=== PATIENT | female | born 1975 | race Caucasian/White ===

== ENCOUNTER 2017-02-09 11:48 | Inpatient (IN) | payer OTHER ==
--- NOTE | ~2017-02-09 | OR ---
Unit #: [id number] #: [id number] Patient: SHANNON SHAFFER [id number] [address] [place], [place] [address] [id number] MR#: [id number] NAME: SHANNON SHAFFER ROOM: 311 Date of Procedure: 02/10/2017 Admission Date: 02/09/2017 Surgeon: Jack Dalton III, M.D. : 1975 Attending Physician: Israel Quintanilla M.D. Primary Care Physician: Rush Martino M.D. OPERATIVE REPORT PREOPERATIVE DIAGNOSIS Left breast abscess. POSTOPERATIVE DIAGNOSIS Left breast abscess. PROCEDURE PERFORMED Excision of necrotic tissue including the abscess cavity of the left upper outer quadrant breast abscess. ANESTHESIA General. SPECIMEN Cultures and tissue sent to Pathology. COMPLICATIONS None apparent. ESTIMATED BLOOD LOSS 25 mL. INDICATIONS FOR PROCEDURE This is a 41-year-old lady, who has a history of IV drug use and hepatitis C, who developed an abscess on her left upper breast from IV injection. She is here today for excisional debridement and understands the need for postoperative dressing changes. DESCRIPTION OF PROCEDURE After consent was obtained, the patient was brought to the operating room and placed in the supine position. General anesthetic was administered and her left breast was prepped and draped in standard surgical fashion. She had a necrotic wound draining some purulent material. It had the appearance of MRSA type infection. I made an elliptical incision around the wound bed that was approximately 6 cm long and 2.5 cm wide. I sharply debrided this all the way down to normal breast tissue. I had some difficulty getting good hemostasis due to some diffuse bleeders. I did use cautery for hemostasis. I then irrigated the wound. I did send some of the murky drainage for cultures and the tissue was sent to Pathology. I then packed the wound with Betadine soaked Kerlix gauze. She tolerated the procedure without any problems and returned to the recovery room in stable condition. Unit #: [id number] #: [id number] Patient: SHANNON SHAFFER Dictated by... Jack Dalton III, M.D. VCL/juwan TD: 02/11/2017 12:56 JOB #: [id number] OPERATIVE REPORT Page 1 of 1 X Jack Dalton III, MD PROCEDURE OPERATIVE NOTE
--- NOTE | ~2017-02-09 | CO ---
Unit #: [id number] #: [id number] Patient: SHANNON SHAFFER [id number] [address] [place], [place] [address] [id number] I MR#: [id number] NAME: SHANNON SHAFFER ROOM: 311 Age: 41 Sex: F Admission Date: 02/09/2017 : 1975 Attending Physician: Israel Quintanilla M.D. Primary Care Physician: Rush Martino M.D. Consultation Date: 02/10/2017 CONSULTATION REPORT REASON FOR CONSULTATION Cellulitis and left breast abscess. HISTORY OF PRESENT ILLNESS This is a 41-year-old female with history of IV drug abuse who reports injecting IV heroin into her left breast. She was done approximately five or six days ago and then a few days later she began with swelling, painful breast with erythema and warmth. Patient came to the hospital. She denied any systolic fever, chest pain, shortness of breath, or any other abscesses anywhere else. The patient denies any nausea, vomiting, diarrhea. PAST MEDICAL HISTORY Essentially negative except for IV drug abuse. Questionable cervical cancer. PAST SURGICAL HISTORY Tubal ligation, left hand surgery, exploratory lap, D and C and partial hysterectomy. ALLERGIES No known allergies. MEDICATIONS Vancomycin and Zosyn. Further medications, please refer to patent's MAR. SOCIAL HISTORY The patient has positive tobacco abuse. Positive IV heroin use. No alcohol abuse. REVIEW OF SYSTEMS Negative except for as previously mentioned above. PHYSICAL EXAMINATION VITAL SIGNS: Temperature is 97.9, pulse 68, blood pressure 144/102 and respiratory rate 16. GENERAL: This is a no apparent distress female who just got back from surgery. Her pupils are sluggish. NECK: Supple. CARDIOVASCULAR: S1 and S2. Regular rate and rhythm. PULMONARY: Clear to auscultation bilaterally with no wheezes or rhonchi noted. ABDOMEN: Positive bowel sounds soft but nontender. EXTREMITIES: No clubbing, cyanosis, or edema. Her left breast is Unit #: [id number] #: [id number] Patient: SHANNON SHAFFER currently in a dressing and unable to be examined. DIAGNOSTIC STUDIES LABORATORY STUDIES: BUN 8, creatinine 0.5, sodium 139, potassium 4.9, chloride 103, CO2 28, bilirubin 0.6, AST 71, ALT 79, lactic acid 0.9. White blood cell count 6.5, hemoglobin 13.4, hematocrit 39.8. Blood cultures are currently pending. Breast cultures are currently pending. IMAGING STUDIES: No current medical imaging. IMPRESSION This is a 41-year-old female with history of IV drug abuse who injected into her left breast and developed abscess with associated cellulitis. Patient is status post incision and drainage. At this time will recommend a followup on blood cultures and wound culture results. Will continue vancomycin and Zosyn. Will ask the nursing staff to call with any positive blood cultures. Thank you for allowing us to participate in the care of this patient and further recommendations to follow pending patient's clinical course. Dictated by... Toño PavonPRylanRRylanNRylan for Adair Byrne/cruz TD: 02/10/2017 13:05 JOB #: [id number] CONSULTATION REPORT Page 1 of 1 X X CONSULTATION REPORT
--- NOTE | ~2017-02-09 | HP ---
Unit #: [id number] #: [id number] Patient: SHANNON SHAFFER [id number] [address] [place], [place] [address] [id number] I MR#: [id number] NAME: SHANNON SHAFFER ROOM: 311 Age: 41 Sex: F Admission Date: 02/09/2017 : 1975 Attending Physician: Israel Quintanilla M.D. Primary Care Physician: Rush Martino M.D. HISTORY AND PHYSICAL ADMISSION DIAGNOSES 1. Left breast abscess. 2. IV drug abuse. 3. History of hep. C. HISTORY OF PRESENT ILLNESS Ms. Shaffer is a 41-year-old, female patient of Dr. Martino with the history of IV drug abuse. She admits being addicted to IV heroin who apparently had been injecting into the vein on her left breast; which got infected, swollen, erythematous and she decided to come to the hospital once she started being febrile and more swollen. She complains of pain in the area. Otherwise, denies any substernal chest pain. Denies any headache, dizziness, shortness of air, or dyspnea. Denies any syncope, presyncope, nausea, vomiting, diarrhea, or abdominal pain. REVIEW OF SYSTEMS So, 12-point review of systems on this patient is basically negative, except as above. PAST MEDICAL HISTORY Significant for just gastritis. No other medical issues. PAST SURGICAL HISTORY Significant for tubal ligation, left hand surgery, exploratory laparotomy, [employer] surgery for cervical cancer, D and C, and partial hysterectomy. HOME MEDICATIONS None. ALLERGIES No known drug allergies. SOCIAL HISTORY She is an active smoker. Admits, again, IV heroin abuse. Denies any daily alcohol drinking. FAMILY HISTORY Unremarkable. PHYSICAL EXAM GENERAL APPEARANCE: Patient is a 41-year-old, female in no acute distress. VITAL SIGNS: BP 134/93, heart rate 73, respirations 16, and temperature 98. Unit #: [id number] #: [id number] Patient: SHANNON SHAFFER HEENT: Head is atraumatic. Pupils are equal, round, and reactive to light and accommodation. Extraocular muscles intact. Oropharynx with the missing tooth and multiple caries. NECK: Supple. No mass. No JVD. No bruits. CHEST: Diminished bilaterally. CARDIOVASCULAR: S1 and S2. No murmurs. ABDOMEN: Soft, nontender, and nondistended. LOWER EXTREMITIES: Without any cyanosis, clubbing, or edema. NEUROLOGIC: Patient grossly intact. No focal deficits. SKIN: Significant for erythema and serosanguinal drainage from the left lateral breast. Again, with increasing swelling, tenderness, and widespread erythema, around (1) 6 x 8 cm. DIAGNOSTIC STUDIES LABORATORY: Chemistry: Unremarkable, except potassium of 3.2, BUN and creatinine 7 and 0.5, chloride 98, and AST and ALT 71 and 79. Hematology unremarkable, white count 10.4. ASSESSMENT AND PLAN 1. Left breast abscess. Continue IV vanc. Consider ID evaluation. Status post evaluation per LSA. Scheduled for I and D in the morning. Continue supportive care and symptomatic management. 2. IV drug abuse. Counseled on the importance of quitting. Defers HIV testing. Acceptable to psychiatry evaluation. 3. History of hep. C. 4. Tobacco use. Counseled on importance of quitting. 5. GI and DVT prophylaxes. Put on SCDs. Started on Protonix. 6. Blood cultures pending, which will be followed up. Dictated by Adair Cifuentes/vani TD: 02/10/2017 05:57 JOB #: [id number] HISTORY AND PHYSICAL Page 1 of 1 X Israel Quintanilla MD X HISTORY AND PHYSICAL
--- NOTE | ~2017-02-09 | DS ---
Unit #: [id number] #: [id number] Patient: SHANNON SHAFFER [id number] [address] [address] [id number] I MR#: [id number] NAME: SHANNON SHAFFER ROOM: 311 Age: 41 Sex: F Admission Date: 02/09/2017 : 1975 Discharge Date: 02/12/2017 Attending Physician: Israel Quintanilla M.D. Primary Care Physician: Rush Martino M.D. DISCHARGE SUMMARY FINAL DIAGNOSES 1. Left breast abscess. 2. Status post incision and drainage. 3. Intravenous drug abuse. 4. History of hepatitis C. 5. Hypertension. DISCHARGE MEDICATIONS 1. [place] 7.5/325, one to two tablets q.6 p.r.n. Prescription has been written by Dr. Dalton. 2. Normal saline wet to dry dressing three times a day. 3. Norvasc 5 mg daily. 4. Zyvox 600 mg b.i.d. CONSULTATION DURING HOSPITALIZATION 1. Dr. Navarro - Infectious Disease. 2. Dr. Jack Dalton/Dr. Mesa - [facility]. 3. Dr. Salvatore Spann - Psychiatry Services. LAB WORKUP ON DISCHARGE Sodium 141, potassium 4.0, chloride 108, BUN 6, creatinine 0.6, calcium 8.5. CBC shows WBC 5.4, hemoglobin 12.4, hematocrit 37.3 and platelet count of 171. Blood culture - one growth is negative and one set shows diphtheroids, probable skin contaminant. Wound culture shows occasional Gram-positive cocci in pairs. Beta hCG was negative. Lactic acid 0.9 on admission. PROCEDURE PERFORMED DURING HOSPITALIZATION Excision of the necrotic tissue including the abscess cavity of the left upper outer quadrant breast abscess by Dr. Dalton on 02/11/2017. HOSPITAL COURSE Ms. Shaffer is a 41-year-old female who was admitted by my colleague, Dr. Israel Quintanilla, for left breast abscess. The patient has a history of IV drug abuse. Dr. Mesa was consulted. The patient had the left breast I and D done. Infectious disease was consulted. Patient received IV Zosyn and IV vancomycin during hospitalization. Final culture is still pending. Preliminary is Gram-positive in pair. The patient is being Unit #: [id number] #: [id number] Patient: SHANNON SHAFFER discharged on Zyvox as per ID recommendation. Patient is stable and would like to go home. EXAMINATION ON DISCHARGE VITAL SIGNS: Blood pressure is 150/100, respiratory rate 18, pulse is 85, temperature 97.7, oxygen saturation is 100%. HEENT: Head is normocephalic. CHEST: Fair air entry. CVS: Regular rhythm. BREAST: Left breast dressing is present. ABDOMEN: Soft. DISCHARGE INSTRUCTIONS 1. The patient is being discharged home in stable condition. 2. The patient's blood pressure was elevated during hospitalization and we have started on Norvasc. That needs to be adjusted as outpatient. 3. Patient needs to follow up with primary care provider in one week. 4. Patient needs to follow up with [facility] in two to three weeks. 5. Patient's sister has been instructed on doing the dressing changes. Patient does not want any home healthcare. 6. Drug cessation counseling has been done. Please note - patient was on Requip, Vistaril, Desyrel and Neurontin for withdrawal symptoms. I have discussed with Dr. Salvatore Spann and, as per recommendation, no need of any medications for home. The patient needs to follow up with [facility] as outpatient services. Dictated by... Adair Jefferson/peyton TD: 02/14/2017 08:25 JOB #: [id number] DISCHARGE SUMMARY Page 1 of 1 X Nancy Quinonez MD X DISCHARGE SUMMARY
--- NOTE | ~2017-02-09 | CO ---
Unit #: [id number] #: [id number] Patient: SHANNON SHAFFER [id number] [address] [place], [place] [address] [id number] I MR#: [id number] NAME: SHANNON SHAFFER ROOM: 311 Age: 41 Sex: F Admission Date: 02/09/2017 : 1975 Attending Physician: Israel Quintanilla M.D. Primary Care Physician: Rush Martino M.D. Consultation Date: 02/09/2017 CONSULTATION REPORT REASON FOR CONSULTATION Abscess, left breast. Thank you very much for asking us to see Ms. Rasmussen. HISTORY OF PRESENT ILLNESS She is a 41-year-old white female, who 3 to 4 days ago injected her vein of her left breast with heroin. She subsequently developed erythema, induration and developed skin necrosis and drainage. She came to the emergency room for further evaluation and treatment. ALLERGIES No known medical allergies. MEDICATIONS None. PAST SURGICAL HISTORY Tubal ligation, surgery on left hand, abdominal exploratory surgery, partial hysterectomy. PAST MEDICAL HISTORY None. SOCIAL HISTORY Positive for tobacco use, alcohol use and recreational drug use. IMMUNIZATION STATUS Unknown. REVIEW OF SYSTEMS Negative except for above. FAMILY HISTORY Noncontributory. PHYSICAL EXAMINATION GENERAL: Well-developed, well-nourished white female, in no apparent distress. Awake, alert, and oriented x3. VITAL SIGNS: Temperature 98, pulse 102, respirations 16, blood pressure 149/100. NECK: Supple. No thyromegaly or adenopathy. HEENT: Sclerae nonicteric. Extraocular movements are intact. BACK: No CVA or spinous tenderness. Unit #: [id number] #: [id number] Patient: SHANNON SHAFFER ABDOMEN: Examination of her left breast reveals a large area of erythema and induration. There was an area of necrosis and purulent drainage in the upper outer portion. She states this is where she injected her breast with heroin. DIAGNOSTIC STUDIES LABORATORY RESULTS: Pending. IMPRESSION A 41-year-old white female with an abscess of the left breast secondary to heroin injection. We explained the patient she needs IV fluids, IV antibiotics and incision, drainage and debridement of the abscess. She has recently eaten and drank. As a result, we will paint the area with Betadine and was scheduled for OR in the a.m. All the risks and benefits of the procedure have been fully explained to the patient in detail including the risk of bleeding, infection, additional surgery, as well as other risks. She understands and requests to proceed. Dictated by... Adair Castro/juwan TD: 02/10/2017 01:43 JOB #: [id number] [facility] CONSULTATION REPORT Page 1 of 1 X Jez Mesa MD X CONSULTATION REPORT
--- NOTE | ~2017-02-09 | CO ---
Unit #: [id number] #: [id number] Patient: FEDERICA SHAFFER [id number] [address] [place], [place] [address] [id number] I MR#: [id number] NAME: FEDERICA SHAFFER ROOM: 311 Age: 41 Sex: F Admission Date: 02/09/2017 : 1975 Attending Physician: Israel Quintanilla M.D. Primary Care Physician: Rush Martino M.D. Consultation Date: 02/10/2017 CONSULTATION REPORT REASON FOR CONSULTATION IV heroin use, withdrawal, anxiety. HISTORY OF PRESENT ILLNESS Ms. Federica Shaffer is a 41-year-old female seen on 02/10/2017 at [facility] in room 311, bed 1. The patient admitted using IV drug abuse. She was admitted abscess. The patient's vital signs were 98.0, 73, 18, 134/93. Oxygen saturation 98%. The patient reported having withdrawal symptoms from opiates, anxiety, restlessness of her legs and trouble sleeping. She is feeling hot and cold. The patient reported also pain. The patient has a left breast abscess. IV drug abuse. PAST PSYCHIATRIC HISTORY 1. History of substance, as mentioned above. 2. Depression. 3. Suicidal attempt. 4. The patient underwent inpatient psychiatric treatment. PAST MEDICAL HISTORY Gastritis. MEDICATIONS Please see history and physical, MAR. SOCIAL HISTORY The patient reports that she has good support system. No history of abuse. History of substance abuse, IV opiate abuse. REVIEW OF SYSTEMS Complete review of systems is unremarkable except for pain. MENTAL STATUS EXAMINATION VITALS: Please see above. General appearance, the patient is dressed casually in hospital attire, lying in appropriate position in bed. Attention and concentration fair. Speech is regular rate, coherent. Oriented to time, place and person. Mood and affect sad and dysphoric. Thought process coherent. Thought content, the patient denied any thoughts of harming self or others. No psychotic symptoms. Recent and remote memory fair. Language intact. Fund of knowledge fair to slightly impaired. Insight and judgment fair to slightly impaired. DIAGNOSES Psychiatric: Opiate use disorder, severe, F11.20. Unit #: [id number] #: [id number] Patient: FEDERICA SHAFFER Mood disorder, nos, F32.9. Secondary diagnoses: Deferred. Medical diagnosis: Please refer to history and physical. Psychosocial stressors. PLAN 1. Supportive psychotherapy, psychoeducation provided to the patient. 2. Educated about the benefits and side effects of medication and course and prognosis of illness. 3. Plan to order medication for withdrawal symptoms, such as Desyrel 100 mg at bedtime for sleep, Requip 1 mg b.i.d. for restlessness syndrome, Neurontin 200 t.i.d. for anxiety and withdrawal symptoms, Restoril 25 mg t.i.d. 4. Will closely monitor and follow. Please feel free to call with any questions. Telephone number [phone]. Dictated by... Adair Matt/paul TD: 02/12/2017 08:47 JOB #: [id number] CONSULTATION REPORT Page 1 of 1 X Salvatore Spann MD X CONSULTATION REPORT
[~2017-02-09 11:48] MED LIST: ALBUTEROL MININEB NEB; BACTRIM DS TABL1 TAB PO; CIPRO PO; CITRATE OF MAG300 ML PO; COLACE PO; DOCU SOFT100 M1 PO; DOXYCYCLINE PO; FLAGYL PO; IBUPROFEN PO; KEFLEX PO; KEFLEX125 MG/5 M PO; LEVAQUIN PO; LORTAB 5/500 TA1 TA1 PO; LORTAB 7.51 TAB 7.5/ PO; NO MEDICATIONS; PHENERGAN PR; PHENERGAN W/CO120 ML PO; PHENERGAN25 MG PO; PROTONIX PO; PYRIDIUM PO; TYLOX 5/500 CAP1 CAP PO; ULTRAM PO; VICODIN 5/1 TAB 5/50 PO; VICODIN 5/500 T1 TAB PO
[2017-02-09 14:50] LABS: BASOPHIL% 0.4 % (0-2.5); DIFF IND NO; EOSINOPHIL# 0.2 X10e3 (0-0.7); EOSINOPHIL% 1.7 % (0.0-7.0); HEMATOCRIT 38.9 % (35.0-45.0); HEMOGLOBIN 13.2 gm/dL (12.0-16.0); LYMPHOCYTE# 2.7 X10e3 (1.0-3.5); LYMPHOCYTE% 25.9 % (17.0-45.0); MEAN CELL VOLUME 84.5 FL (83-96); MEAN CORPUSCULAR HEMOGLOBIN 28.6 PG (28-34); MEAN CORPUSCULAR HGB CONC 33.9 g/dL (30-36); MEAN PLATELET VOLUME 8.3 FL (6.5-11.5); MONOCYTE# 0.7 X10e3 (0-1.0); MONOCYTE% 6.5 % (3.0-12.0); NEUTROPHIL# 6.8 X10e3 (1.5-7.1); NEUTROPHIL% 65.5 % (40-75); PLATELET COUNT 209 X10e3 (140-420); RED BLOOD COUNT 4.61 X10e (3.90-5.30); RED CELL DISTRIBUTION WIDTH 12.8 % (11.0-15.5); WHITE BLOOD COUNT 10.4 X10e3 (4.0-10.5)
[2017-02-09 15:13] LABS: ALBUMIN SERUM 3.6 g/dL (3.5-5.0); BILIRUBIN, DIRECT 0.1 mg/dL (0.0-0.2); BILIRUBIN,INDIRECT 0.5 mg/dL (0.0-0.9); BILIRUBIN,TOTAL 0.6 mg/dL (0.2-2.0); CALCIUM SERUM 9.1 mg/dL (8.4-10.2); CREATININE SERUM 0.5 mg/dL (0.6-1.4); GLOM FILT RATE Estimated 121.9 mL/min (>60); POTASSIUM 3.2 mmol/L (3.5-5.1); PROTEIN TOTAL SERUM 8.1 g/dL (6.0-8.3)
[2017-02-10 05:33] LABS: HEMATOCRIT 39.8 % (35.0-45.0); HEMOGLOBIN 13.4 gm/dL (12.0-16.0); MEAN CELL VOLUME 86.2 FL (83-96); MEAN CORPUSCULAR HEMOGLOBIN 29.1 PG (28-34); MEAN CORPUSCULAR HGB CONC 33.7 g/dL (30-36); MEAN PLATELET VOLUME 8.2 FL (6.5-11.5); RED BLOOD COUNT 4.62 X10e (3.90-5.30); RED CELL DISTRIBUTION WIDTH 12.7 % (11.0-15.5); WHITE BLOOD COUNT 6.5 X10e3 (4.0-10.5)
[2017-02-10 06:41] LABS: CALCIUM SERUM 8.6 mg/dL (8.4-10.2); CREATININE SERUM 0.5 mg/dL (0.6-1.4); GLOM FILT RATE Estimated 121.9 mL/min (>60)
[2017-02-11 06:35] LABS: BASOPHIL% 0.5 % (0-2.5); EOSINOPHIL# 0.2 X10e3 (0-0.7); EOSINOPHIL% 3.6 % (0.0-7.0); HEMATOCRIT 37.3 % (35.0-45.0); HEMOGLOBIN 12.4 gm/dL (12.0-16.0); LYMPHOCYTE# 2.3 X10e3 (1.0-3.5); LYMPHOCYTE% 43.1 % (17.0-45.0); MEAN CELL VOLUME 86.4 FL (83-96); MEAN CORPUSCULAR HEMOGLOBIN 28.8 PG (28-34); MEAN CORPUSCULAR HGB CONC 33.3 g/dL (30-36); MEAN PLATELET VOLUME 8.4 FL (6.5-11.5); MONOCYTE# 0.3 X10e3 (0-1.0); NEUTROPHIL# 2.5 X10e3 (1.5-7.1); NEUTROPHIL% 46.8 % (40-75); PLATELET COUNT 171 X10e3 (140-420); RED BLOOD COUNT 4.32 X10e (3.90-5.30); RED CELL DISTRIBUTION WIDTH 12.8 % (11.0-15.5); WHITE BLOOD COUNT 5.4 X10e3 (4.0-10.5)
[2017-02-11 06:40] LABS: DIFF IND NO
[2017-02-11 06:54] LABS: CALCIUM SERUM 8.5 mg/dL (8.4-10.2); CREATININE SERUM 0.6 mg/dL (0.6-1.4); GLOM FILT RATE Estimated 114.8 mL/min (>60)
[2017-02-12] MEDS ORDERED: NORVASC PO ×2 (15:02→15:10)
[2017-02-12] MEDS ORDERED: NICOTINE PATCH1 EACH TD (15:02)
[2017-02-12] MEDS ORDERED: VICODIN PO (15:05)
[2017-02-12] MEDS ORDERED: NORCO 7.5-3251 EACH (15:07)
[2017-02-12] MEDS ORDERED: SODIUM CHLORI1000 ML PO (15:09)
[2017-02-12] MEDS ORDERED: ZYVOX600 MG PO (15:11)
== END 2017-02-12 16:08 | disposition home or self-care (01) | DRG 584 ==
LOC: CED 11:48 → CFTX 11:48 → CED 13:56 → CEDOF 15:58 → C3A PCU 15:58 → CED 16:13 → CEDOF 16:13 → C3A PCU 16:13 → CEDOF 19:47 → C3A PCU 19:47
PROVIDERS: Hospitalist; Nurse Practitioner; Surgery
PROC: 0HBU0ZZ Excision of Left Breast, Open Approach (ICD-10-PCS; principal; 2017-02-10 09:30)
DX: N61.1 Abscess of the breast and nipple (principal); F11.20 Opioid dependence, uncomplicated; I10 Essential (primary) hypertension; N61.0 Mastitis without abscess; F17.210 Nicotine dependence, cigarettes, uncomplicated; Z71.6 Tobacco abuse counseling; F39 Unspecified mood [affective] disorder; Z86.19 Personal history of other infectious and parasitic diseases
CPT/HCPCS: 36415; 80048; 80076; 80202; 83605; 84703; 85025; 85027; 87040; 87070; 87075; 87205; 88304; 88312; 96365; 96375; 99285; J1170; J1885; J2250; J2270; J2405; J2543; J2550; J3010; J3370